=== PATIENT | female | born 1980 | race Caucasian/White ===

== ENCOUNTER 2021-07-19 13:09 | Outpatient (CLI) | payer OTHER | END 2021-07-19 13:10 | disposition home or self-care (01) | LOC: CSHULT 13:09 | PROVIDERS: ATTEND Family Medicine | DX: K75.9 Inflammatory liver disease, unspecified (principal); K82.8 Other specified diseases of gallbladder | CPT/HCPCS: 76705 ==

== ENCOUNTER 2021-08-10 17:05 | Inpatient (IN) | payer OTHER ==
[2021-08-10 18:55] LABS: #Basophils 0.1 10x3/uL (0.0-0.2); #Eosinphils 0.4 10x3/uL (0.0-0.5); #Monocytes 1.3 10x3/uL (0.0-1.1); #Neutrophils 8.2 10x3/uL (1.5-8.4); %Basophils 0.4 % (0.0-2.0); %Eosinophils 3.4 % (0.0-6.0); %Lymphocytes 20.9 % (18.0-47.0); %Monocytes 9.9 % (0.0-10.0); %Neutrophils 64.9 % (40.0-75.0); Hemoglobin 12.4 g/dL (12.0-15.5); Mean Corpuscular HGB CONC 33.5 g/dL (32.0-36.0); Mean Corpuscular Hemoglobin 26.3 pg (27.0-33.0); Mean Corpuscular Volume 78.6 fl (81.6-98.3); Mean Platelet Volume 9.6 fl (7.4-10.4); Platelet Count 498 10x3/uL (150-450); RBC Distribution Width 27.1 % (11.5-14.5); Red Blood Cell (RBC) Count 4.71 10x6/uL (3.90-5.03); White Blood Cell (WBC) Count 12.7 10x3/uL (3.5-10.5)
[2021-08-10 19:12] LABS: ALT (SGPT) 606 U/L (8-55); AST (SGOT) 898 U/L (5-34); Albumin 3.6 g/dL (3.5-5.0); Alkaline Phosphatase 151 U/L (40-110); Anion Gap 14 mmol/L (10-20); BUN (Urea Nitrogen) 9 mg/dL (7.0-18.7); Bilirubin, Total 14.6 mg/dL (0.2-1.2); Calc. Creatinine Clearance 0 mL/min (70-130); Calcium 9.7 mg/dL (7.8-10.44); Carbon Dioxide 23 mmol/L (22-29); Chloride 102 mmol/L (98-107); Globulin 3.7 g/dL (2.4-3.5); Glucose 86 mg/dL (70-105); Potassium 4.1 mmol/L (3.5-5.1); Protein, Total 7.3 g/dL (6.0-8.3); Sodium 135 mmol/L (136-145)
[2021-08-10 19:40] LABS: Microcytosis SLIGHT = 6-15 cells (100X) (0-5/hpf)
[2021-08-10 19:41] LABS: Anisocytosis MODERATE=16-30 cells (100X) (0-5/hpf); Target Cells SLIGHT = 2-5 cells (100X) (0-1/hpf)
[2021-08-10 19:42] LABS: Platelet Morphology Comment Appears Increased
[2021-08-10 19:45] LABS: BHCG - Serum Negative (NEGATIVE); Pregs Control Background? CLEAR/WHITE (CLR/WHITE); Pregs Control Bar Appear? YES (CONTROL BAR)
[2021-08-10 19:53] LABS: CK (CPK) 34 U/L (29-168); Lipase 43 U/L (8-78); Magnesium 1.8 mg/dL (1.6-2.6)
[2021-08-10 20:05] LABS: Bilirubin, Direct Greater than 10.0 mg/dL (0.1-0.3)
[2021-08-10 20:43] LABS: INR-International Normal Ratio 1.2; PTT 26.2 sec (22.0-33.0); Prothrombin Time 12.7 sec (9.5-12.1)
[2021-08-10 21:14] LABS: Bilirubin 6 (Negative); Blood, Urine 10 (Negative); Clarity Slightly Cloudy (Clear); Glucose, Urine (Dipstick) Normal (Negative); Ketone, Urine Negative (Negative); Leukocyte 100 (Negative); Nitrite Positive (Negative); Protein, Urine (Dipstick) 15 mg/dl (Neg-Trace)
[2021-08-10 21:21] LABS: Bacteria/HPF 3+ HPF (None Seen); RBC/HPF 0-3 HPF (0-3)
[2021-08-10 21:22] LABS: Mucous/LPF 1+ LPF (<2+)
[2021-08-10] MEDS ORDERED: Piperacillin/Tazobactam 4.5 GM VIAL ONE (21:53)
[2021-08-10] MEDS ORDERED: Senokot S 8.6-50 MG TAB PO PRN (23:32)
[2021-08-10] MEDS ORDERED: Ondansetron PF 4 MG/2 ML Vial IVP PRN (23:32)
[2021-08-10] MEDS ORDERED: Calcium Carbonate 500 MG ChewTAB PO PRN (23:32)
[2021-08-10 23:56] LABS: SARS-CoV-2 NAA Rapid Test Not Detected (NotDetected)
[2021-08-11] MEDS: Lactated Ringer's 1,000 ML IV SCH ×3 (02:20→20:35)
[2021-08-11 03:11] VITALS: BMI 32.4
[2021-08-11 05:00] LABS: ALT (SGPT) 548 U/L (8-55); AST (SGOT) 853 U/L (5-34); Acetaminophen Less than 6.0 mcg/mL (10.0-30.0); Albumin 3.2 g/dL (3.5-5.0); Alkaline Phosphatase 140 U/L (40-110); Anion Gap 13 mmol/L (10-20); BUN (Urea Nitrogen) 10 mg/dL (7.0-18.7); Bilirubin, Total 14.4 mg/dL (0.2-1.2); Calc. Creatinine Clearance 103 mL/min (70-130); Calcium 8.8 mg/dL (7.8-10.44); Carbon Dioxide 23 mmol/L (22-29); Cardiac Risk 26.8 (Less than 4.5); Chloride 106 mmol/L (98-107); Cholesterol 214 mg/dl (< 200 Desired); Globulin 3.3 g/dL (2.4-3.5); Glucose 102 mg/dL (70-105); HDL Cholesterol 8 mg/dL (>60 Neg Risk); LDL Cholesterol, Calculated 151 mg/dL; Potassium 3.7 mmol/L (3.5-5.1); Protein, Total 6.5 g/dL (6.0-8.3); Sodium 138 mmol/L (136-145); Triglycerides 273 mg/dL (Less than 150)
[2021-08-11 05:02] LABS: MONO NEGATIVE CONTROL ZONE White (Negative) (White); MONO POSITIVE CONTROL Pink Line (Positive) (PINK/RED); Mononucleosis NEGATIVE (NEGATIVE)
[2021-08-11 05:12] LABS: Thyroid Stimulating Hormone 0.4248 uIU/mL (0.35-4.94)
[2021-08-11 05:36] LABS: #Eosinphils 0.5 10x3/uL (0.0-0.5); #Monocytes 1.1 10x3/uL (0.0-1.1); #Neutrophils 6.2 10x3/uL (1.5-8.4); %Basophils 0.4 % (0.0-2.0); %Eosinophils 4.5 % (0.0-6.0); %Lymphocytes 23.8 % (18.0-47.0); %Monocytes 10.9 % (0.0-10.0); %Neutrophils 59.8 % (40.0-75.0); Hemoglobin 11.6 g/dL (12.0-15.5); Mean Corpuscular HGB CONC 34.5 g/dL (32.0-36.0); Mean Corpuscular Hemoglobin 26.9 pg (27.0-33.0); Mean Corpuscular Volume 77.8 fl (81.6-98.3); Mean Platelet Volume 10.3 fl (7.4-10.4); Platelet Count 468 10x3/uL (150-450); RBC Distribution Width 26.7 % (11.5-14.5); Red Blood Cell (RBC) Count 4.32 10x6/uL (3.90-5.03); White Blood Cell (WBC) Count 10.3 10x3/uL (3.5-10.5)
[2021-08-11] MEDS: Piperacillin/Tazobactam 3.375 GM in Sodium Chloride 0.9% 100 ML IVPB SCH ×2 (05:37→16:33)
[2021-08-11] MEDS: Famotidine/PF 20 mg/2ml Vial SLOW IVP SCH ×2 (09:55→21:29)
[2021-08-11] MEDS: Enoxaparin Sodium 40 MG/0.4 ML SYRINGE SC SCH (09:55)
[2021-08-11 13:40] LABS: HBSAg Index 0.22 S/CO (0-0.99); Hep B Surf Ag Non-Reactive S/CO (NonReactive)
[2021-08-11 19:50] LABS: Hep C IgG Ab Non-Reactive (NonReactive); Hep C Index 0.09 S/CO (0-0.79)
[2021-08-11 20:04] LABS: HBCM Index 0.07 S/CO (0-0.79); Hep A IgM AB Non-Reactive (NonReactive); Hep A IgM S/CO 0.18 S/CO (0-0.79); Hepatitis B Core IgM Abs Non-Reactive (NonReactive)
[2021-08-12] MEDS: Piperacillin/Tazobactam 3.375 GM in Sodium Chloride 0.9% 100 ML IVPB SCH ×2 (01:38→10:14)
[2021-08-12] MEDS: Lactated Ringer's 1,000 ML IV SCH (01:38)
[2021-08-12 06:52] LABS: #Basophils 0.1 10x3/uL (0.0-0.2); #Eosinphils 0.4 10x3/uL (0.0-0.5); #Neutrophils 5.4 10x3/uL (1.5-8.4); %Basophils 0.5 % (0.0-2.0); %Eosinophils 4.5 % (0.0-6.0); %Lymphocytes 28.2 % (18.0-47.0); %Monocytes 10.2 % (0.0-10.0); %Neutrophils 56.2 % (40.0-75.0); Mean Corpuscular HGB CONC 33.5 g/dL (32.0-36.0); Mean Corpuscular Hemoglobin 26.4 pg (27.0-33.0); Mean Corpuscular Volume 78.7 fl (81.6-98.3); Mean Platelet Volume 10.4 fl (7.4-10.4); Platelet Count 385 10x3/uL (150-450); RBC Distribution Width 26.8 % (11.5-14.5); Red Blood Cell (RBC) Count 4.17 10x6/uL (3.90-5.03); White Blood Cell (WBC) Count 9.6 10x3/uL (3.5-10.5)
[2021-08-12 07:21] LABS: Anion Gap 14 mmol/L (10-20); BUN (Urea Nitrogen) 7 mg/dL (7.0-18.7); Calc. Creatinine Clearance 117 mL/min (70-130); Calcium 8.2 mg/dL (7.8-10.44); Carbon Dioxide 21 mmol/L (22-29); Chloride 106 mmol/L (98-107); Glucose 65 mg/dL (70-105); Iron 66 ug/dL (50-170); Iron Binding Capacity, Total 373 mcg/dL (265-497); Magnesium 1.7 mg/dL (1.6-2.6); Potassium 3.8 mmol/L (3.5-5.1); Sodium 137 mmol/L (136-145)
[2021-08-12 08:02] LABS: ALT (SGPT) 546 U/L (8-55); AST (SGOT) 922 U/L (5-34); Bilirubin, Total 13.2 mg/dL (0.2-1.2)
[2021-08-12 08:18] LABS: Anisocytosis SLIGHT = 6-15 cells (100X) (0-5/hpf); Target Cells SLIGHT = 2-5 cells (100X) (0-1/hpf)
[2021-08-12 08:25] LABS: Alkaline Phosphatase 122 U/L (40-110); Globulin 3.1 g/dL (2.4-3.5); Protein, Total 6.1 g/dL (6.0-8.3)
[2021-08-12] MEDS: Famotidine/PF 20 mg/2ml Vial SLOW IVP SCH (10:14)
[2021-08-12] MEDS: Enoxaparin Sodium 40 MG/0.4 ML SYRINGE SC SCH (10:14)
[2021-08-12 10:15] LABS: EBV VCA IgM <36.0 U/mL (0.0-35.9); Nuclear AG IgG (EBNA) AB >600.0 U/mL (0.0-17.9)
[2021-08-12 11:46] VITALS: BP 117/66; TEMP 98
[2021-08-14 17:10] LABS: ANA Symphony (Qualitative) Negative (Negative); ANA Symphony (Quantitative) 0.3 Ratio (< 0.7 Negative); dsDNA IgG Antibody 1.4 IU/mL (<10 Negative)
[2021-08-14 18:37] LABS: EliA Vaculitis New Method **** NEW METHOD ****; Mitochondrial Ab 1.1 U/mL (<4 Negative)
[2021-08-14 19:37] LABS: Smooth Muscle Total ABS 21 Units (0-19)
== END 2021-08-12 16:25 | disposition home or self-care (01) | DRG 442 ==
LOC: CSHERS 17:05 → CSHPP 23:32 → UNDOADMIN 08-11 01:33 → CSHPED 08-12 10:30
PROVIDERS: ADMIT Student in an Organized Health Care Education/Training Program; ATTEND Family Medicine
DX: K75.89 Other specified inflammatory liver diseases (principal); N39.0 Urinary tract infection, site not specified; F17.210 Nicotine dependence, cigarettes, uncomplicated; K81.9 Cholecystitis, unspecified; F32.A Depression, unspecified; B96.89 Other specified bacterial agents as the cause of diseases classified elsewhere; Z20.822 Contact with and (suspected) exposure to COVID-19
CPT/HCPCS: 36415; 74177; 76705; 78226; 78227; 80053; 80061; 80074; 80143; 81003; 81015; 82248; 82390; 82550; 82728; 83516; 83540; 83550; 83690; 83735; 84443; 84703; 85025; 85610; 85730; 86038; 86225; 86308; 86644; 86645; 86664; 86665; 87086; 96365; 80307; A9537; J1650; J2543; J3490; J7120; S0028; U0002